=== PATIENT | male | born 2000 | race Caucasian/White ===

== ENCOUNTER 2021-02-09 13:48 | Outpatient (REF) | payer OTHER, SELFPAY ==
[2021-02-09 14:03] LABS: COVID-19 Test Positive (Negative)
== END 2021-02-09 13:49 | disposition home or self-care (01) ==
LOC: HO.LAB 13:48
PROVIDERS: Visit Provider Internal Medicine
DX: Z20.822 Contact with and (suspected) exposure to COVID-19 (principal)
CPT/HCPCS: 36415; 87635; C9803

== ENCOUNTER 2021-06-17 12:55 | Outpatient (REF) | payer OTHER, SELFPAY | END 2021-06-17 12:56 | disposition home or self-care (01) | LOC: HO.LAB 12:55 | PROVIDERS: Visit Provider Internal Medicine | DX: Z20.822 Contact with and (suspected) exposure to COVID-19 (principal) | CPT/HCPCS: C9803; U0003; U0005 ==

== ENCOUNTER 2021-07-09 10:44 | Outpatient (REF) | payer OTHER, SELFPAY | END 2021-07-09 10:45 | disposition home or self-care (01) | LOC: HO.LAB 10:44 | PROVIDERS: Visit Provider Internal Medicine | DX: Z20.822 Contact with and (suspected) exposure to COVID-19 (principal) | CPT/HCPCS: C9803; U0003; U0005 ==

== ENCOUNTER 2021-09-10 13:12 | Outpatient (REF) | payer OTHER, SELFPAY ==
[2021-09-10 13:36] LABS: Strep A Nucleic Acid Negative (Negative)
[2021-09-10 14:16] LABS: Influenza A PCR NEGATIVE (Negative); Influenza B PCR NEGATIVE (Negative); Resp Syncy Virus RNA Qual PCR NEGATIVE (Negative); SARS COV2 PCR INHOUSE NEGATIVE (Negative)
== END 2021-09-10 13:13 | disposition home or self-care (01) ==
LOC: HO.LNP 13:12
PROVIDERS: Visit Provider Physician Assistant
DX: Z20.822 Contact with and (suspected) exposure to COVID-19 (principal); J06.9 Acute upper respiratory infection, unspecified
CPT/HCPCS: 0241U; 87651

== ENCOUNTER 2022-04-02 04:41 | Emergency (ER) | payer OTHER, SELFPAY ==
[2022-04-02 04:45] VITALS: BP 132/86; PULSE 110
[2022-04-02 04:47] VITALS: BMI 30.7
[2022-04-02 05:02] VITALS: BP 122/54; PULSE 107; RESP 20; O2SAT 96
--- NOTE | 2022-04-02 05:08 | PC.NURSE ---
pt intoxicated making demands. pt was allowed one visitor if calm and cooperative. pt started to shout out inapprop lang, wandering in the ed to find a way out. pt redirected to his bed which was moved to room 22H. girlfriend called the mom and his brother is on the way. pt asking for his brother. security called to talk with the pt.
--- NOTE | 2022-04-02 05:35 | PC.NURSE ---
after being more cooperative after security came and talked with the pt. pt is now asking for a sandwhich, pt sitting up in bed, intoxicated.
--- NOTE | 2022-04-02 05:42 | PC.NURSE ---
pt ambulated to bathroom with steady gait, mom is present.
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
== END 2022-04-02 06:28 | disposition home or self-care (01) ==
PROVIDERS: Emergency Provider Emergency Medicine
DX: F10.129 Alcohol abuse with intoxication, unspecified (principal); Y90.9 Presence of alcohol in blood, level not specified; Z79.899 Other long term (current) drug therapy
CPT/HCPCS: 99282

== ENCOUNTER 2025-03-17 13:17 | Emergency (ER) | payer OTHER, SELFPAY ==
--- NOTE | ~2025-03-17 | XR_ITS ---
EXAMINATION: XR ANKLE 3 OR MORE VIEWS LEFT, XR FOOT 3 OR MORE VIEWS LEFT HISTORY: trauma COMPARISON: There are no prior studies available for comparison. FINDINGS: Six views of the left foot and ankle are submitted. Osseous mineralization is normal. There is no fracture or dislocation. The joint spaces are preserved. The soft tissues are unremarkable. XR/XR foot LT min 3V IMPRESSION: Unremarkable examination of the left foot and ankle. Electronically signed by: Felix Rodriguez MD 03/17/2025 01:45 PM EDT
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
[2025-03-17 13:22] VITALS: BP 142/60; PULSE 100; RESP 19; TEMP 36.6; O2SAT 99; BMI 32.5
--- NOTE | 2025-03-17 13:23 | ED_ITS ---
HPI - General Adult General Chief complaint: Extremity Injury, Lower Stated complaint: ankle inj Time Seen by Provider: 03/17/25 16:27 Source: patient, RN notes reviewed and old records reviewed Mode of arrival: ambulatory Limitations: no limitations History of Present Illness ED Provider: Marcial HPI narrative: 24-year-old male presents for evaluation of left foot pain. Patient reports that last week he jumped over a bunch of steps and twisted his left foot He denies any other injury He reports that he has been able to walk but with pain Related Data Previous Rx's ?Medication ?Instructions ?Recorded albuterol sulfate 90 mcg/actuation 2 puff inhalation Q4-6H PRN 12/29/20 aerosol inhaler shortness of breath or wheezing #8.5 grams hydrocortisone valerate 0.2 % 1 appl topical DAILY PRN rash #90 12/29/20 topical ointment grams loratadine 10 mg tablet (Allergy 10 mg PO DAILY #60 tabs 12/29/20 Relief (loratadine)) albuterol sulfate 90 mcg/actuation 2 inh inhalation Q4-6H PRN 12/16/21 aerosol inhaler (Ventolin HFA) shortness of breath or wheezing #8.5 grams Allergies Allergy/AdvReac Type Severity Reaction Status Date / Time Penicillins Allergy Unknown Hives Verified 03/17/25 13:23 Review of Systems Constitutional: Constitutional: Denies body ache(s), Denies chills and Denies fever(s) Cardiovascular: Cardiovascular: Denies chest pain Gastrointestinal: Gastrointestinal: Denies abdominal pain, Denies nausea and Denies vomiting Musculoskeletal: Musculoskeletal: Reports arthralgias and Reports joint swelling Integumentary/Breasts: Skin/Breast: Denies rash PMFSH Past Medical History Medical History (Updated 03/17/25 @ 16:30 by Carlos Ceja) Alcohol abuse Moderate eczema Surgical History History of appendectomy Family History Family History Mother No problems noted. Social History Social History (Updated 12/29/20 @ 09:29 by ANIKET Mccray) Household Members: Family Advance Directives: No Advance Directives Information Provided: No Do you have a plan to hurt others: No Plan Physical Exam ED Vital Signs: Vital Signs - 24 hr 03/17/25 13:22 03/17/25 16:43 Temperature 98 F 98 F Pulse Rate 100 100 Respiratory Rate 19 19 Blood Pressure 142/60 H 142/60 H Pulse Oximetry 99 99 Oxygen Delivery Method Room Air Room Air BMI result Body Mass Index 32.5 Const General: healthy appearing, comfortable, no acute distress, alert and awake Nutritional Appearance: well nourished Orientation/consciousness: patient oriented x3 HENMT Head: Yes normocephalic and Yes atraumatic Eyes Eyelids: Yes eyelids normal Conjunctivae: conjunctivae normal Sclerae: sclerae normal Corneas: corneas normal Pupils: Equal, round and reactive pupils present EOM: EOMs intact bilaterally Neck Neck: Yes full ROM Resp Effort & Inspection: normal respiratory effort, able to speak in complete sentences and not labored Skin General skin exam: elasticity normal Neuro General: patient oriented x3 Cranial nerves: Yes Equal, round and reactive pupils present and Yes Bilaterally intact EOM present Cognition (Neuro): normal cognition Extrem Other: Mild edema to the dorsum of the left foot. There is faint ecchymosis on the plantar surface of the foot. No palpable deformities. No tenderness over the Achilles region. No left lateral or medial malleolus tenderness Course Course Course Narrative: RME, this is a rapid medical exam performed by Wilbert Ceja please refer to primary provider for complete H&P- 24 year old male presents for evaluation of left foot and ankle pain after twisting it last week jumping off of a few steps. plan for x-rays Medical Decision Making Medical Decision Making MDM Narrative: 24 year old male presents for evaluation of left foot pain. X-rays negative. He was placed in a short walking boot. There is no concner for achilles tendon rupture. He will be given ortho follow up Differential Diagnosis Differential Diagnoses: The differential diagnosis associated with the presentation includes ankle sprain, foot sprain, ankle fracture, foot fracture, contusion Independent Interpretation I performed an independent interpretation of an: Plain X-Ray (Agree with radiology interpretation) Radiology Impression Discussion of test interpretation with radiology: I have reviewed the radiologist's reading. Radiologist Impression: FINDINGS: Six views of the left foot and ankle are submitted. Osseous mineralization is normal. There is no fracture or dislocation. The joint spaces are preserved. The soft tissues are unremarkable. XR/XR ankle LT min 3V IMPRESSION: Unremarkable examination of the left foot and ankle. Electronically signed by: Felix Rodriguez MD 03/17/2025 01:45 PM EDT RP FINDINGS: Six views of the left foot and ankle are submitted. Osseous mineralization is normal. There is no fracture or dislocation. The joint spaces are preserved. The soft tissues are unremarkable. XR/XR foot LT min 3V IMPRESSION: Unremarkable examination of the left foot and ankle. Electronically signed by: Felix Rodriguez MD 03/17/2025 01:45 PM EDT RP Discharge Plan Discharge Clinical Impression: Acute pain of left foot Patient Disposition: Home, Self-Care Instructions: Arthralgia (ED) Additional Instructions: Your x-ray did not show any clear fractures It is still possible to have a nondisplaced fracture Use Ibuprofen and Acetaminophen for pain You may follow up with orthopedics if your pain does not resolve Prescriptions: No Action albuterol sulfate [Ventolin HFA] 90 mcg/actuation HFA aerosol inhaler 2 inh inhalation Q4-6H PRN (Reason: shortness of breath or wheezing) Qty: 8.5 1RF hydrocortisone valerate 0.2 % ointment 1 appl topical DAILY PRN (Reason: rash) Qty: 90 2RF albuterol sulfate 90 mcg/actuation HFA aerosol inhaler 2 puff inhalation Q4-6H PRN (Reason: shortness of breath or wheezing) Qty: 8.5 1RF loratadine [Allergy Relief (loratadine)] 10 mg tablet 10 mg PO DAILY Qty: 60 1RF Referrals: [facility] [place] [facility]geons [Provider Group] (left foot pain, negative x-ray) Stand Alone Forms: Work/School Release Interventions: ED Discharge Assessment Last Done: 03/17/25 16:43 Discharge Date/Time: 03/17/25 16:49 Print Language: Portuguese
[2025-03-17 16:43] VITALS: BP 142/60; PULSE 100; RESP 19; TEMP 36.6; O2SAT 99
== END 2025-03-17 16:49 | disposition home or self-care (01) ==
PROVIDERS: Emergency Provider Emergency Medicine; PCP Internal Medicine
DX: S99.912A Unspecified injury of left ankle, initial encounter (principal); M79.672 Pain in left foot; M25.572 Pain in left ankle and joints of left foot; X58.XXXA Exposure to other specified factors, initial encounter; Y93.9 Activity, unspecified; Y92.89 Other specified places as the place of occurrence of the external cause; Y99.8 Other external cause status
CPT/HCPCS: 73610; 73630; 99282; 99283

== ENCOUNTER → 2025-03-17 13:23 | Outpatient (BNV) | payer OTHER, SELFPAY | PROVIDERS: PCP Internal Medicine; Visit Provider Radiology Diagnostic Radiology | DX: S99.912A Unspecified injury of left ankle, initial encounter (principal); S99.922A Unspecified injury of left foot, initial encounter | CPT/HCPCS: 73610; 73630 ==